=== PATIENT | male | born 1995 | race Caucasian/White ===

== ENCOUNTER 2023-12-29 15:24 | Outpatient (AMB) | payer BC, SELFPAY ==
--- NOTE | 2023-12-29 15:27 | MHC.PC.OV ---
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 patient giving proxy access and the proxy will need to provide photo identification and complete the appropriate authorization. The Patient Portal also allows track their appointments online. The [facility] Patient Portal also saves patients time by allowing them to submit updates to their demographic and contact information prior to their visits. Portal email notifications will also alert patients to any new activity on their portal, such as test results and new appointments. In order to initially enroll in the [facility] Patient Portal, you will need to enter some required information including the following: ? your [facility] Medical Record number ? your personal home email address ? name ? date of Please note: In order to enroll in the [facility] Patient Portal, we need to have your email address on file in your electronic medical record. The email address needs to be specific for one person (yourself) in order for your Portal enrollment to be successful. You can update your email address in person with our Registration staff when you are registering for a hospital visit. Otherwise, you will need to come to the Health Information Management (Medical Records) Department at [facility]. We are open from Wednesday ? Wednesday from 7:30 a.m. ? 4:30 p.m. You will be required to present a photo id. Once you have successfully enrolled in the Patient Portal, you will receive a one-time user id and password for the Portal, sent to your email address. This will allow you to log into the Patient Portal within 99 hrs and reset your own logon id and password, and define personal security questions. Once your permanent login and password have been set, you can log into the [facility] Patient Portal at any time via the blue button above or from the Portal Logon button on any page of the [facility] website. [facility] and [facility] encourage all of our patients to enroll in Patient Portal as it presents a valuable opportunity for patients and their families to actively participate in their care and stay healthy Welcome to [facility]. We look forward to working with you.
[2023-12-29 15:37] VITALS: BP 125/62; PULSE 75; RESP 16; TEMP 36.6; O2SAT 99; BMI 27.8
== END 2023-12-29 16:17 | disposition home or self-care (01) ==
PROVIDERS: PCP Nurse Practitioner Family; Visit Provider Nurse Practitioner Family
DX: Z00.00 Encounter for general adult medical examination without abnormal findings (principal); Z28.21 Immunization not carried out because of patient refusal; Z23 Encounter for immunization; Z13.1 Encounter for screening for diabetes mellitus; Z13.9 Encounter for screening, unspecified

== ENCOUNTER → 2023-12-29 15:24 | Outpatient (BNVA) | payer BC, SELFPAY | PROVIDERS: PCP Nurse Practitioner Family; Visit Provider Nurse Practitioner Family | DX: Z00.00 Encounter for general adult medical examination without abnormal findings (principal); Z23 Encounter for immunization; Z28.21 Immunization not carried out because of patient refusal | CPT/HCPCS: 83036; 90471; 90715; 96127 ==

== ENCOUNTER 2025-01-03 08:13 | Outpatient (AMB) | payer BC, SELFPAY ==
--- NOTE | 2025-01-03 08:14 | A.OFFPC_ITS ---
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 cancer than others. If you are age 55 or younger, screening is not generally recommended. You should talk with your provider about if you have a higher risk for prostate cancer. Risk factors include: Having a family history of prostate cancer (especially a brother or father) Being If you choose to be tested, the PSA blood test is repeated over time (yearly or less often), though the best frequency is not known. Prostate examinations are no longer routinely done on men with no symptoms. Prostate cancer SKIN EXAM Your provider may check your skin for signs of skin cancer, especially if you're at high risk. People at high risk include those who have had skin cancer before, have close relatives with skin cancer, or have a weakened immune system. TESTICULAR EXAM The [place] Preventive Services Task Force (USPSTF) now recommends against performing testicular self-exams. Doing testicular self-exams has been shown to have little to no benefit.
[2025-01-03 08:18] VITALS: BP 99/67; PULSE 70; RESP 12; TEMP 36.4; O2SAT 97; BMI 29.9
--- OUTSIDE RECORDS SUMMARY | 2025-01-03 08:29 | XMS_ITS | Encounter Summary ---
Author Organization [facility] Address [address] [place] [id number] Phone Care Team Providers Care Shop Laborer Name Role Phone Gal Myers MD Primary Care Provider [phone] Encounter Details Date Type Department Care Team (Late st Contact Info) Description 12/17/2011 Documentation [facility] Family Medicine [address] [place], [place] [id number] Family Medicine, Physician [address] [place], [place] [id number] Social History Tobacco Use Types Packs/Day Years Used Date Smoking Tobacco: Never Assessed Sex and Gender Information Value Date Recorded Sex Assigned at Not on file Legal Sex Male 5:00 PM EDT Gender Identity Not on file Sexual Orientation Not on file documented as of this encounter Plan of Treatment Not on file documented as of this encounter Visit Diagnoses Not on filedocumented in this encounter Care Teams Shop Laborer Relationship Specialty Start Date End Date Gal Myers MD [address] [facility] [place] [address] PCP - General Pediatrics 08/17/17 05/19/22 documented as of this encounter
--- OUTSIDE RECORDS SUMMARY | 2025-01-03 08:29 | XMS_ITS | Encounter Summary ---
Author Organization [facility] Address [address] [place] [phone] Phone Care Team Providers Care Inside Finisher Name Role Phone Gal Myers MD Primary Care Provider [phone] Encounter Details Date Type Department Care Team (Late st Contact Info) Description 09/24/2016 Conversion Encounter [facility] [address] [place] [address] Social History Tobacco Use Types Packs/Day Years Used Date Smoking Tobacco: Never Comments:Never smoker Sex and Gender Information Value Date Recorded Sex Assigned at Not on file Legal Sex Male 5:00 PM EDT Gender Identity Not on file Sexual Orientation Not on file documented as of this encounter Plan of Treatment Not on file documented as of this encounter Visit Diagnoses Not on filedocumented in this encounter Care Teams Inside Finisher Relationship Specialty Start Date End Date Gal Myers MD [address] [place] [address] PCP - General Pediatrics 08/17/17 05/19/22 documented as of this encounter
--- OUTSIDE RECORDS SUMMARY | 2025-01-03 08:29 | XMS_ITS | Clinical Summary ---
Author Organization [facility] Address [address] [place] [phone] Phone Care Team Providers Care Claims Adjuster Crop Name Role Phone Unavailable Primary Care Provider Unavailabl e Allergies No known active allergies Medications No known medications Active Problems Problem Noted Date Diagnosed Date Amblyopia 10/28/2011 Immunizations Immunization Administration Dates Next Due DTP 1997,1997,1997 DTaP 5 06/13/2001,12/02/1998 H1N1 12/14/2008 HPV, Quadrivalent 05/25/2012,01/15/2012,10/28/19 12 Hep A, ped/adol 11/13/2013,10/01/2010 Hep B, ped/adol 1997,1997,1997 Hib (PRP-T) 09/20/1998, 8,1997,07/23 IPV 06/13/2001,1997,1997 Influenza Split 10/27/2012, 2,10/01/2010,12/12 Influenza, injectable, quadr ivalent, preservative free 12/30/2015,11/22/2014,11/13/2013 Influenza, injectable, trivalent 009,11/25/2007,11/05/2006,11/11,12/24/2004,11/29/2003 MMR 06/13/2001,05/30/1998 Meningococcal Conj (Menactra) MCV4P 11/13/2013,0 09/24/2009 OPV 09/20/1998 Tdap 09/24/2009 Varicella 08/11/2007,05/30/1998 Family History Medical History Relation Name Comments No Known Problems Father Devin No Known Problems Mother Nasreen Relation Name Status Comments Father Devin Alive Father: Alive a nd well Maternal Grandfather Alive Materna l grandfather: HTN/cardiac/diabetes Maternal Grandmother Alive Materna l grandmother: diabetes/palpatations, Abdominal aortic aneurysm, [place],, Kidney Stones Mother Nasreen Alive Mother: Alive a nd well Other , Family histor y of Hypertension, Family history of Allergies, Family history of Cancer, bladder, Family history of Eczema, No family history of Thrombophilia, Family history of Diabetes mellitus, Family history of Heart disease, Family history of Deafness, No family history of Dental caries, , Family history of Hyperlipidemia, Family history of Asthma, No family history of Sudden /VA under age 55, No family history of CVA (Stroke), Family history of Migraines, Family history of Thyroid disease Paternal Grandfather Paterna l grandfather: asthma/allergies, Abdominal aortic aneurysm Paternal Grandmother Paterna l grandmother: eczema Social History Tobacco Use Types Packs/Day Years Used Date Smoking Tobacco: Never Smokeless Tobacco: Never Tobacco Cessation:Counseling Given: Yes Comments:Never smoker Alcohol Use Standard Drinks/Week Comments Yes 0 (1 standard drink = 0.6 oz pur e alcohol) Hunger/Food Answer Date Recorded No 08/29/2018 Stable Housing Answer Date Recorded No 02/11/2019 Transportation Concerns Answer Date Rec orded No 08/29/2018 Hazards in Home Answer Date Recorded No 08/29/2018 Financing Utilities Answer Date Recorde d No 08/29/2018 Safety at Home Answer Date Recorded No 08/29/2018 Outside Support Answer Date Recorded No 08/29/2018 Understanding Health Concerns Answer Da te Recorded No 08/29/2018 Financing Health Concerns Answer Date R ecorded No 08/29/2018 Missing School or Work Answer Date Gurmeet rded No 08/29/2018 Sex and Gender Information Value Date Recorded Sex Assigned at Not on file Legal Sex Male 5:00 PM EDT Gender Identity Not on file Sexual Orientation Not on file Last Filed Vital Signs Vital Sign Reading Time Taken Comments Blood Pressure 125/78 08/29/2018 2:18 PM EDT Pulse 64 08/29/2018 2:18 PM EDT Temperature 36.8 C (98.2 F) 08/26/2017 2:09 PM EDT Respiratory Rate - - Oxygen Saturation - - Inhaled Oxygen Concentration - - Weight 69.9 kg (154 lb) 08/29/2018 2:18 PM EDT Height 170.8 cm (5' 7.25 ) 08/29/2018 2:18 PM ED T Body Mass Index 23.94 08/29/2018 2:18 PM EDT Plan of Treatment Health Maintenance Due Date Last Done Comments DTaP,Tdap,and Td Vaccines (7 - Td or Tdap) 09/25/2019 09/24/2009, 06/13/2001, 12/02/1998, Additional history exists Influenza Vaccines (#1) 2024 12/30/19 16, 11/22/2014, 11/13/2013, Additional history exists COVID-19 Vaccine ( season) 2024 Hepatitis B Vaccines Completed 1997, 1997, 1997 HIB Vaccines Completed 09/20/1998, 11/09, 1997, Additional history exists IPV Vaccines Completed 06/13/2001, 09/08, 1997, Additional history exists MMR Vaccines Completed 06/13/2001, 05/30/1998 Varicella Vaccines Completed 08/11/2007, 05/30/1998 HPV Vaccines Completed 05/25/2012, 12/08/2011, 10/28/2011 Hepatitis A Vaccines Completed 11/13/2013, 10/02/19 11 Meningococcal Vaccine Completed 11/13/2013, 010 Men B Vaccine Aged Out No longer elig ible based on patient's age to complete this topic Pneumococcal Vaccine Aged Out No long er eligible based on patient's age to complete this topic
== END 2025-01-03 09:02 | disposition home or self-care (01) ==
LOC: HO.HMCFM 08:14
PROVIDERS: PCP Nurse Practitioner Family; Visit Provider Nurse Practitioner Family
DX: Z00.00 Encounter for general adult medical examination without abnormal findings (principal); F43.9 Reaction to severe stress, unspecified; F43.23 Adjustment disorder with mixed anxiety and depressed mood; H91.90 Unspecified hearing loss, unspecified ear; L30.9 Dermatitis, unspecified; B07.0 Plantar wart; Z28.21 Immunization not carried out because of patient refusal

== ENCOUNTER → 2025-01-03 08:13 | Outpatient (BNVA) | payer BC, SELFPAY | PROVIDERS: PCP Nurse Practitioner Family; Visit Provider Nurse Practitioner Family | DX: Z00.00 Encounter for general adult medical examination without abnormal findings (principal); B07.0 Plantar wart; F43.9 Reaction to severe stress, unspecified; F43.23 Adjustment disorder with mixed anxiety and depressed mood; H91.90 Unspecified hearing loss, unspecified ear; L30.9 Dermatitis, unspecified; Z28.21 Immunization not carried out because of patient refusal | CPT/HCPCS: 96127 ==